=== PATIENT | female | born 1955 | race Caucasian/White ===

== ENCOUNTER 2016-11-17 23:56 | Emergency (ER) | payer OTHER, SELFPAY ==
[2016-11-18] MEDS ORDERED: AMOXICILLIN500 M1 PO (00:18)
[2016-11-18 00:31] LABS: URINE APPEARANCE CLEAR; URINE BILIRUBIN NEGATIVE (NEG); URINE BLOOD MODERATE (NEG); URINE COLOR YELLOW; URINE GLUCOSE (UA) NEGATIVE (NEG); URINE KETONE NEGATIVE (NEG); URINE LEUKOCYTE ESTERASE NEGATIVE (NEG); URINE NITRITE NEGATIVE (NEG); URINE PH 6.5 (5.0-8.0); URINE PROTEIN NEGATIVE (NEG); URINE SPECIFIC GRAVITY 1.015 (1.003-1.030)
[2016-11-18 00:45] LABS: BASO % 0.2 % (0-2); EOS % 2.1 % (0-7); EOSINOPHIL ABSOLUTE COUNT 0.1 tho/cmm (0.0-0.7); HCT-HEMATOCRIT 37.2 % (34.0-49.0); HGB-HEMOGLOBIN 12.6 gm/dl (12.0-15.5); LYMPH % 27.7 % (20-45); LYMPH ABSOLUTE COUNT 1.3 tho/cmm (0.8-4.5); MCH (MEAN CORPUSCULAR HGB) 30.6 pg (28.0-32.0); MCHC MEAN CORPUSCULAR HGB CONC 33.9 % (32.0-36.0); MCV (MEAN CELL VOLUME) 90.3 fl (82.0-96.0); MEAN PLATELET VOLUME 10.3 cmc (9.4-12.4); MONOCYTE ABSOLUTE COUNT 0.3 tho/cmm (0.0-1.2); PLATELET COUNT 177 tho/cmm (150-450); RED BLOOD COUNT 4.12 mil/cmm (4.00-5.20); RED CELL DISTRIBUTION WIDTH 12.2 % (12.4-16.4); WHITE BLOOD COUNT 4.7 tho/cmm (4.0-10.0)
[2016-11-18 00:48] LABS: URINE EPITHELIAL CELLS RARE /[HPF] (0-10); URINE WBC 0 /[HPF] (0-5)
[2016-11-18 00:56] LABS: ANION GAP 12 mmol/L (0-20); BLOOD UREA NITROGEN 25 mg/dl (6-24); CARBON DIOXIDE-VENOUS 24 mmol/L (22-32); CHLORIDE 111 mmol/l (96-110); CREATININE 0.79 mg/dl (0.50-1.10); GLUCOSE 128 mg/dL (70-110); POTASSIUM 3.8 mmol/L (3.7-5.1); SODIUM 143 mmol/L (135-145); eGFR VALUE FOR BLACK >90 mL/Min
[2016-11-18] MEDS ORDERED: ZOFRAN4 M2 PO (02:09)
[2016-11-18] MEDS ORDERED: NORCO 5-325 TA1 EACH PO (02:09)
== END 2016-11-18 02:19 ==
LOC: EDMED 23:56
PROVIDERS: Emergency Medicine
DX: N13.2 Hydronephrosis with renal and ureteral calculous obstruction (principal); Z88.0 Allergy status to penicillin; Z98.890 Other specified postprocedural states; Z90.710 Acquired absence of both cervix and uterus
CPT/HCPCS: J1170; J1885; J2405; J7030